=== PATIENT | female | born 1960 | race Caucasian/White ===

== ENCOUNTER 2018-01-27 13:38 | Emergency (ER) | payer MEDICAID ==
[2018-01-27] MEDS ORDERED: Furosemide 40 MG/4 ML VIAL IVPUSH ONE (14:08)
[2018-01-27] MEDS ORDERED: Sodium Chloride 0.9% 10 ML Syringe FLUSH PRN (14:08)
--- NOTE | 2018-01-27 14:30 | EDM.PDOC ---
ED HPI GENERAL MEDICAL PROBLEM - General Chief Complaint: General Stated Complaint: SWELLING Time Seen by Provider: 01/27/18 14:15 Source of Information: Reports: Patient History Limitations: Reports: No Limitations - History of Present Illness INITIAL COMMENTS - FREE TEXT/NARRATIVE: Presents with swelling to legs and hands x 2 weeks. Developed swelling to throat today, which seems to have improved. Recently underwent a cardiac workup including stress test and echocardiogram at [facility]. Denies chest pain but does endorse dyspnea on exertion. Patient states she has not been diagnosed with heart failure. - Related Data Allergies Allergy/AdvReac Type Severity Reaction Status Date / Time hydrocodone Allergy Shortness Verified 01/18/18 06:15 of Breath Home Meds: Home Meds DULoxetine HCl [Duloxetine HCl] 30 mg PO BEDTIME 12/17/17 [History] Lisinopril 20 mg PO DAILY 12/17/17 [History] Ziprasidone HCl 120 mg PO DAILY 12/17/17 [History] Furosemide [Lasix] 20 mg PO DAILY #15 tab 01/27/18 [Rx] Isosorbide Mononitrate [Imdur] 30 mg PO DAILY 01/27/18 [History] Magnesium Oxide [Magnesium] 400 mg PO DAILY #15 capsule 01/27/18 [Rx] Omeprazole 10 mg PO DAILY 01/27/18 [History] Potassium Chloride 10 meq PO DAILY #15 cap.er 01/27/18 [Rx] Past Medical History Cardiovascular History: Reports: Hypertension. Denies: CAD, Heart Failure, DC Musculoskeletal History: Reports: Other (See Below) Other Musculoskeletal History: Left hip problems Psychiatric History: Reports: Bipolar, Depression - Past Surgical History GI Surgical History: Reports: Appendectomy, Cholecystectomy Female Surgical History: Reports: Hysterectomy Social & Family History - Family History Family Medical History: Noncontributory - Tobacco Use Smoking Status *Q: Never Smoker - Caffeine Use Caffeine Use: Reports: Soda - Alcohol Use Alcohol Use History: No - Recreational Drug Use Recreational Drug Use: No ED ROS GENERAL - Review of Systems Review Of Systems: See Below Constitutional: Reports: No Symptoms HEENT: Reports: Throat Swelling Respiratory: Reports: Shortness of Breath (on exertion) Cardiovascular: Reports: Dyspnea on Exertion, Edema Endocrine: Reports: No Symptoms GI/Abdominal: Reports: No Symptoms : Reports: No Symptoms Musculoskeletal: Reports: No Symptoms Skin: Reports: No Symptoms Neurological: Reports: No Symptoms Psychiatric: Reports: No Symptoms Hematologic/Lymphatic: Reports: No Symptoms Immunologic: Reports: No Symptoms ED EXAM, GENERAL - Physical Exam Exam: See Below Exam Limited By: No Limitations General Appearance: Alert, WD/WN, No Apparent Distress Nose: Normal Inspection Throat/Mouth: Normal Inspection, Normal Lips, Normal Gums, Normal Oropharynx, Normal Voice, No Airway Compromise Head: Atraumatic, Normocephalic Neck: Normal Inspection, Supple Respiratory/Chest: No Respiratory Distress, Lungs Clear, Normal Breath Sounds Cardiovascular: Regular Rate, Rhythm, No Murmur, No Rub GI/Abdominal: Normal Bowel Sounds, Soft, Non-Tender, No Distention Extremities: Pedal Edema (to mid thighs bilaterally) Neurological: Alert, Oriented, No Motor/Sensory Deficits Psychiatric: Normal Affect, Normal Mood Skin Exam: Warm, Dry, Intact Course - Vital Signs Last Recorded V/S: Last Vital Signs Temp 36.6 C 01/27/18 13:53 Pulse 94 01/27/18 13:53 Resp 16 01/27/18 13:53 BP 140/74 01/27/18 13:53 Pulse Ox 94 L 01/27/18 13:53 - Orders/Labs/Meds Orders: Active Orders 24 hr Category Date Time Status Abdomen Pelvis w Cont [CT] Stat Exams 01/27/18 15:34 Taken CXR [Chest 2V] [CR] Stat Exams 01/27/18 15:05 Taken CULTURE BLOOD [BC] Urgent Lab 01/27/18 15:20 Received CULTURE BLOOD [BC] Urgent Lab 01/27/18 15:30 Received Sodium Chloride 0.9% [Saline Flush] Med 01/27/18 14:08 Active 10 ml FLUSH ASDIRECTED PRN Blood Culture x2 Reflex Set [OM.PC] Urgent Oth 01/27/18 15:06 Ordered Saline Lock Insert [OM.PC] Routine Oth 01/27/18 14:08 Ordered Medication Orders Sodium Chloride (Saline Flush) 10 ml FLUSH ASDIRECTED PRN PRN Reason: Keep Vein Open Last Admin: 01/27/18 14:25 Dose: 10 ml Labs: Laboratory Tests 01/27/18 01/27/18 01/27/18 Range/Units 14:20 14:20 14:20 WBC 17.4 H (4.5-12.0) X10-3/uL RBC 3.63 (3.23-5.20) x10(6)uL Hgb 11.7 (11.5-15.5) g/dL Hct 33.7 (30.0-51.3) % MCV 92.8 (80-96) fL MCH 32.2 (27.7-33.6) pg MCHC 34.7 (32.2-35.4) g/dL RDW 15.3 (11.5-15.5) % Plt Count 307 (125-369) X10(3)uL MPV 7.5 (7.4-10.4) fL Add Manual Diff Yes Neutrophils % (Manual) 72 (46-82) % Band Neutrophils % 3 (0-6) % Lymphocytes % (Manual) 12 L (13-37) % Monocytes % (Manual) 5 (4-12) % Eosinophils % (Manual) 8 H (0-5) % Sodium 135 (135-145) mmol/L Potassium 4.3 (3.5-5.3) mmol/L Chloride 99 L (100-110) mmol/L Carbon Dioxide 27 (21-32) mmol/L BUN 17 (7-18) mg/dL Creatinine 1.2 H (0.55-1.02) mg/dL Est Cr Clr Drug Dosing 44.13 mL/min Estimated GFR (MDRD) 46 L (>60) BUN/Creatinine Ratio 14.2 (9-20) Glucose 129 H (80-116) mg/dL Calcium 9.2 (8.6-10.2) mg/dL Magnesium (1.8-2.5) mg/dL Total Bilirubin 0.3 (0.1-1.3) mg/dL AST 14 (5-25) IU/L ALT 34 (12-36) U/L Alkaline Phosphatase 86 (56-112) IU/L NT-Pro-B Natriuret Pep 14 (<=125) pg/mL Total Protein 7.8 (6.0-8.0) g/dL Albumin 3.6 (3.5-5.2) g/dL Globulin 4.2 g/dL Albumin/Globulin Ratio 0.9 TSH, Ultra Sensitive 2.05 (0.36-3.74) IU/mL Urine Color (YELLOW) Urine Appearance (CLEAR) Urine pH (5.0-6.5) Ur Specific [place] (1.010-1.025) Urine Protein (NEGATIVE) mg/dL Urine Glucose (UA) (NEGATIVE) mg/dL Urine Ketones (NEGATIVE) mg/dL Urine Occult Blood (NEGATIVE) Urine Nitrite (NEGATIVE) Urine Bilirubin (NEGATIVE) Urine Urobilinogen (NEGATIVE) mg/dL Ur Leukocyte Esterase (NEGATIVE) Urine RBC (0) Urine WBC (0) Ur Squamous Epith Cells (NS,R,O) Urine Bacteria (NS) 01/27/18 01/27/18 Range/Units 14:20 15:11 WBC (4.5-12.0) X10-3/uL RBC (3.23-5.20) x10(6)uL Hgb (11.5-15.5) g/dL Hct (30.0-51.3) % MCV (80-96) fL MCH (27.7-33.6) pg MCHC (32.2-35.4) g/dL RDW (11.5-15.5) % Plt Count (125-369) X10(3)uL MPV (7.4-10.4) fL Add Manual Diff Neutrophils % (Manual) (46-82) % Band Neutrophils % (0-6) % Lymphocytes % (Manual) (13-37) % Monocytes % (Manual) (4-12) % Eosinophils % (Manual) (0-5) % Sodium (135-145) mmol/L Potassium (3.5-5.3) mmol/L Chloride (100-110) mmol/L Carbon Dioxide (21-32) mmol/L BUN (7-18) mg/dL Creatinine (0.55-1.02) mg/dL Est Cr Clr Drug Dosing mL/min Estimated GFR (MDRD) (>60) BUN/Creatinine Ratio (9-20) Glucose (80-116) mg/dL Calcium (8.6-10.2) mg/dL Magnesium 1.5 L (1.8-2.5) mg/dL Total Bilirubin (0.1-1.3) mg/dL AST (5-25) IU/L ALT (12-36) U/L Alkaline Phosphatase (56-112) IU/L NT-Pro-B Natriuret Pep (<=125) pg/mL Total Protein (6.0-8.0) g/dL Albumin (3.5-5.2) g/dL Globulin g/dL Albumin/Globulin Ratio TSH, Ultra Sensitive (0.36-3.74) IU/mL Urine Color Yellow (YELLOW) Urine Appearance Clear (CLEAR) Urine pH 5.0 (5.0-6.5) Ur Specific [place] 1.005 L (1.010-1.025) Urine Protein Negative (NEGATIVE) mg/dL Urine Glucose (UA) Normal (NEGATIVE) mg/dL Urine Ketones Negative (NEGATIVE) mg/dL Urine Occult Blood Negative (NEGATIVE) Urine Nitrite Negative (NEGATIVE) Urine Bilirubin Negative (NEGATIVE) Urine Urobilinogen Normal (NEGATIVE) mg/dL Ur Leukocyte Esterase Negative (NEGATIVE) Urine RBC Not seen (0) Urine WBC 0-5 (0) Ur Squamous Epith Cells Few H (NS,R,O) Urine Bacteria Few H (NS) Meds: Medications Generic Name Dose Route Start Last Admin Trade Name Freq PRN Reason Stop Dose Admin Sodium Chloride 10 ml 01/27/18 14:08 01/27/18 14:25 Saline Flush FLUSH 10 ml ASDIRECTED PRN Administration Keep Vein Open Discontinued Medications Generic Name Dose Route Start Last Admin Trade Name Freq PRN Reason Stop Dose Admin Furosemide 40 mg 01/27/18 14:08 01/27/18 14:25 Lasix IVPUSH 01/27/18 14:09 40 mg NOW ONE Administration Iopamidol 100 ml 01/27/18 15:46 01/27/18 15:52 [id number] (76%) IV 01/27/18 15:47 100 ml . DIRECTED ONE Administration - Radiology Interpretation Free Text/Narrative:: CXR: NAD CT ABD/PELVIS w/ IV: Bilateral low-density adrenal lesions. Mild lymph node prominence in the mid and upper abdomen. Left ovarian cystic lesion. - Re-Assessments/Exams Free Text/Narrative Re-Assessment/Exam: 01/27/18 16:33 Eosinophilia noted on 01/18/18 CBC. Patient diuresed after Lasix, feels much better. Departure - Departure Time of Disposition: 16:35 Disposition: Home, Self-Care 01 Condition: Good Clinical Impression: Eosinophilia, Anasarca, Hypomagnesemia - Discharge Information *PRESCRIPTION DRUG MONITORING PROGRAM REVIEWED*: No *COPY OF PRESCRIPTION DRUG MONITORING REPORT IN PATIENT RICHAR: Not Applicable Prescriptions: Furosemide [Lasix] 20 mg PO DAILY #15 tab Magnesium Oxide [Magnesium] 400 mg PO DAILY #15 capsule Potassium Chloride 10 meq PO DAILY #15 cap.er Instructions: Edema, [id number], Leukocytosis, Hypomagnesemia Referrals: Fabian Charles MD [Primary Care Provider] - Forms: ED Department Discharge, ED Return to Work/School Form Additional Instructions: Fill prescriptions for Lasix, Potassium and Magnesium and take as directed. Follow up with your doctor in 1-2 days. Return to the ER if symptoms worsen. - My Orders Last 24 Hours: My Active Orders 01/27/18 14:08 Sodium Chloride 0.9% [Saline Flush] 10 ml FLUSH ASDIRECTED PRN Saline Lock Insert [OM.PC] Routine 01/27/18 15:05 CXR [Chest 2V] [CR] Stat 01/27/18 15:06 Blood Culture x2 Reflex Set [OM.PC] Urgent 01/27/18 15:20 CULTURE BLOOD [BC] Urgent 01/27/18 15:30 CULTURE BLOOD [BC] Urgent 01/27/18 15:34 Abdomen Pelvis w Cont [CT] Stat - Assessment/Plan Last 24 Hours: My Active Orders 01/27/18 14:08 Sodium Chloride 0.9% [Saline Flush] 10 ml FLUSH ASDIRECTED PRN Saline Lock Insert [OM.PC] Routine 01/27/18 15:05 CXR [Chest 2V] [CR] Stat 01/27/18 15:06 Blood Culture x2 Reflex Set [OM.PC] Urgent 01/27/18 15:20 CULTURE BLOOD [BC] Urgent 01/27/18 15:30 CULTURE BLOOD [BC] Urgent 01/27/18 15:34 Abdomen Pelvis w Cont [CT] Stat
[2018-01-27] MEDS ORDERED: Iopamidol 755 Mg/ML 100 ML Bottle IV ONE (15:46)
--- NOTE | 2018-01-30 14:52 | CR ---
INDICATION: Leukocytosis. CHEST, PA AND LATERAL VIEWS: FINDINGS: This patient is of larger body habitus. There is prominent mediastinal fat. There is emphysematous change in the upper lungs. No pneumonia. No pleural effusion. No CHF. There is a mild rotoscoliosis deformity of the thoracic spine. Upper thoracic spine is curved convex right. Lower thoracic spine is curved convex left. There is some mild degenerative end plate change and spurring throughout the thoracic spine. IMPRESSION: Underlying emphysema. No pneumonia or CHF. MTDD
== END 2018-01-27 16:46 | disposition home or self-care (01) ==
LOC: FB.ED 13:38
DX: R60.1 Generalized edema (principal); D72.1 Eosinophilia; E83.42 Hypomagnesemia; I10 Essential (primary) hypertension; Z88.5 Allergy status to narcotic agent; Z79.899 Other long term (current) drug therapy
CPT/HCPCS: 36415; 71046; 74177; 80053; 81001; 83735; 83880; 84443; 85025; 87040; 96374; 99285; J1940; J7050; Q9967

== ENCOUNTER 2022-03-16 10:09 | Inpatient (IN) | payer BC ==
[2022-03-16] MEDS ORDERED: Acetaminophen 500 MG Tab PO ONE (10:26)
[2022-03-16 11:00] LABS: ESTIMATED GFR 72 mL/min (>60)
[2022-03-16 11:00] LABS: BASE EXCESS VENOUS,POC 4 mmol/L (-2 - 3+); PCO2 VENOUS,POC 57 mmHg (41-51); PH VENOUS,POC 7.35 pH Units (7.32-7.43)
[2022-03-16] MEDS ORDERED: Magnesium Sulfate/Water 2 GM in Premix Bag 1 BAG IV ONE (11:16)
[2022-03-16 12:10] LABS: CORONAVIRUS COVID-19 NAA NEGATIVE (NEGATIVE)
[2022-03-16] MEDS ORDERED: Sodium Chloride 0.9% 1,000 ML IV ONE ×2 (12:10→23:11)
[2022-03-16] MEDS ORDERED: Albuterol/Ipratropium 3.0-0.5 MG/3 ML Neb Soln NEB ONE (12:15)
[2022-03-16] MEDS ORDERED: Ondansetron 4 MG/2 ML SDV IV PRN (15:12)
[2022-03-16] MEDS ORDERED: Magnesium Hydroxide 400 MG/5 ML Susp 30 ML Cup PO PRN (15:12)
[2022-03-16] MEDS ORDERED: Acetaminophen 325 MG Tab PO PRN (15:12)
[2022-03-16] MEDS ORDERED: Albuterol 0.083% 2.5 MG/3 ML Neb Soln NEB PRN (15:12)
[2022-03-16] MEDS ORDERED: Zolpidem 5 MG Tab PO PRN (15:12)
[2022-03-16] MEDS ORDERED: amLODIPine 5 MG Tab PO SCH (15:15)
[2022-03-16] MEDS ORDERED: Aspirin 81 MG Tab.EC PO SCH (15:15)
[2022-03-16] MEDS ORDERED: Dextrose 5%-0.45% NaCl 1,000 ML IV SCH (15:15)
[2022-03-16] MEDS ORDERED: Cetirizine 10 MG Tab PO SCH (15:15)
[2022-03-16] MEDS ORDERED: methylPREDNISolone Sod Succ 125 MG in Sodium Chloride 0.9% 100 ML IV SCH (16:00)
[2022-03-16] MEDS: Albuterol/Ipratropium 3.0-0.5 MG/3 ML Neb Soln NEB SCH ×2 (16:22→22:00)
[2022-03-16] MEDS: Enoxaparin 40 MG/0.4 ML Syringe SUBCUT SCH (16:23)
[2022-03-16] MEDS: methylPREDNISolone Sodium Succinate 125 MG/2 ML SDV IVPUSH SCH (16:23)
[2022-03-16] MEDS ORDERED: Azithromycin 500 MG in Sodium Chloride 0.9% 250 ML IV SCH (16:30)
[2022-03-16] MEDS: D5 1/2 NS w/ 20 mEq/L KCl 1,000 ML IV SCH (18:24)
[2022-03-16] MEDS: Ziprasidone HCl 20 MG Cap PO SCH (20:55)
[2022-03-16] MEDS: DULoxetine 60 MG Cap PO SCH (20:55)
[2022-03-16] MEDS: Montelukast 10 MG Tab PO SCH (20:56)
[2022-03-16] MEDS: Simvastatin 10 MG Tab PO SCH (20:56)
[2022-03-16] MEDS: metFORMIN 1,000 MG Tab PO SCH (20:56)
[2022-03-16] MEDS: Pregabalin 75 MG Cap PO SCH (21:09)
[2022-03-16] MEDS: Magnesium Oxide 400 MG Tab PO SCH (22:03)
[2022-03-17] MEDS: methylPREDNISolone Sodium Succinate 125 MG/2 ML SDV IVPUSH SCH ×2 (00:08→08:25)
[2022-03-17] MEDS ORDERED: Sodium Chloride 0.9% 1,000 ML IV ONE (02:33)
[2022-03-17] MEDS ORDERED: Iopamidol 755 Mg/ML 75 ML Bottle IV ONE (03:55)
[2022-03-17] MEDS: Albuterol/Ipratropium 3.0-0.5 MG/3 ML Neb Soln NEB SCH ×4 (04:08→21:13)
[2022-03-17 04:26] LABS: BASE EXCESS VENOUS,POC -4 mmol/L (-2 - 3+); PCO2 VENOUS,POC 47 mmHg (41-51)
[2022-03-17] MEDS: D5 1/2 NS w/ 20 mEq/L KCl 1,000 ML IV SCH ×2 (04:55→05:00)
[2022-03-17 05:17] LABS: ESTIMATED GFR 72 mL/min (>60)
[2022-03-17] MEDS: Pantoprazole 40 MG Tab.CR PO SCH (06:31)
[2022-03-17] MEDS: Aspirin 81 MG Tab.EC PO SCH (08:26)
[2022-03-17] MEDS: amLODIPine 5 MG Tab PO SCH (08:26)
[2022-03-17] MEDS: DULoxetine 30 MG Cap PO SCH (08:26)
[2022-03-17] MEDS: Hydrochlorothiazide/Lisinopril 12.5-10 MG Tab PO SCH (08:26)
[2022-03-17] MEDS: Cetirizine 10 MG Tab PO SCH (08:26)
[2022-03-17] MEDS: Sodium Chloride 0.9% 10 ML Syringe FLUSH PRN ×3 (08:27→21:17)
[2022-03-17] MEDS: Pregabalin 75 MG Cap PO SCH ×2 (09:57→21:13)
[2022-03-17] MEDS: Magnesium Oxide 400 MG Tab PO SCH (10:11)
[2022-03-17] MEDS ORDERED: Sodium Chloride 0.9% 1,000 ML IV SCH (13:30)
[2022-03-17] MEDS: Piperacillin/Tazobactam 3.375 GM in Sodium Chloride 0.9% 50 ML IV SCH ×2 (13:46→20:43)
[2022-03-17] MEDS ORDERED: Iopamidol 755 MG/ML 150 ML Bottle IV ONE (14:00)
[2022-03-17] MEDS: Enoxaparin 40 MG/0.4 ML Syringe SUBCUT SCH (16:36)
[2022-03-17 17:45] LABS: BASE EXCESS VENOUS,POC -3 mmol/L (-2 - 3+); PCO2 VENOUS,POC 39 mmHg (41-51); PH VENOUS,POC 7.37 pH Units (7.32-7.43)
[2022-03-17] MEDS: DULoxetine 60 MG Cap PO SCH (21:12)
[2022-03-17] MEDS: Ziprasidone HCl 20 MG Cap PO SCH (21:12)
[2022-03-17] MEDS: Montelukast 10 MG Tab PO SCH (21:13)
[2022-03-17] MEDS: Simvastatin 10 MG Tab PO SCH (21:13)
[2022-03-18] MEDS: Piperacillin/Tazobactam 3.375 GM in Sodium Chloride 0.9% 50 ML IV SCH ×2 (02:21→09:38)
[2022-03-18] MEDS: Albuterol/Ipratropium 3.0-0.5 MG/3 ML Neb Soln NEB SCH ×4 (04:06→21:00)
[2022-03-18] MEDS: Sodium Chloride 0.9% 10 ML Syringe FLUSH PRN ×2 (04:07→09:38)
[2022-03-18] MEDS: Pantoprazole 40 MG Tab.CR PO SCH (06:31)
[2022-03-18 06:35] LABS: ESTIMATED GFR 72 mL/min (>60)
[2022-03-18] MEDS: Pregabalin 75 MG Cap PO SCH ×2 (09:39→21:06)
[2022-03-18] MEDS: DULoxetine 30 MG Cap PO SCH (09:41)
[2022-03-18] MEDS: Hydrochlorothiazide/Lisinopril 12.5-10 MG Tab PO SCH (09:44)
[2022-03-18] MEDS: amLODIPine 5 MG Tab PO SCH (09:45)
[2022-03-18] MEDS: Cetirizine 10 MG Tab PO SCH (09:55)
[2022-03-18] MEDS: Aspirin 81 MG Tab.EC PO SCH (09:55)
[2022-03-18] MEDS: Doxycycline 100 MG Tab PO SCH ×2 (11:35→20:59)
[2022-03-18] MEDS: predniSONE 20 MG Tab PO SCH ×2 (11:35→20:59)
[2022-03-18] MEDS: Enoxaparin 40 MG/0.4 ML Syringe SUBCUT SCH (16:16)
[2022-03-18] MEDS: DULoxetine 60 MG Cap PO SCH (20:58)
[2022-03-18] MEDS: Ziprasidone HCl 20 MG Cap PO SCH (20:58)
[2022-03-18] MEDS: Montelukast 10 MG Tab PO SCH (20:59)
[2022-03-18] MEDS: Simvastatin 10 MG Tab PO SCH (20:59)
[2022-03-19] MEDS: Albuterol/Ipratropium 3.0-0.5 MG/3 ML Neb Soln NEB SCH ×2 (04:45→10:09)
[2022-03-19 06:49] LABS: ESTIMATED GFR 72 mL/min (>60)
[2022-03-19] MEDS: Pantoprazole 40 MG Tab.CR PO SCH (06:53)
[2022-03-19] MEDS: DULoxetine 30 MG Cap PO SCH (08:41)
[2022-03-19] MEDS: metFORMIN 1,000 MG Tab PO SCH (08:43)
[2022-03-19] MEDS: Aspirin 81 MG Tab.EC PO SCH (08:44)
[2022-03-19] MEDS: amLODIPine 5 MG Tab PO SCH (08:45)
[2022-03-19] MEDS: Hydrochlorothiazide/Lisinopril 12.5-10 MG Tab PO SCH (08:45)
[2022-03-19] MEDS: Doxycycline 100 MG Tab PO SCH (08:46)
[2022-03-19] MEDS: predniSONE 20 MG Tab PO SCH (08:46)
[2022-03-19] MEDS: Cetirizine 10 MG Tab PO SCH (08:46)
[2022-03-19] MEDS: Pregabalin 75 MG Cap PO SCH (08:51)
== END 2022-03-19 10:40 | disposition home or self-care (01) | DRG 140 ==
LOC: FB.ED 10:09 → FB.MS 15:06 → UNDOADMOB 15:06 → OBSVTOIN 03-17 12:59
PROVIDERS: ADMIT Student in an Organized Health Care Education/Training Program; ATTEND Student in an Organized Health Care Education/Training Program
DX: J44.1 Chronic obstructive pulmonary disease with (acute) exacerbation (principal); I50.9 Heart failure, unspecified; E11.9 Type 2 diabetes mellitus without complications; E66.2 Morbid (severe) obesity with alveolar hypoventilation; I11.0 Hypertensive heart disease with heart failure; E86.0 Dehydration; R79.82 Elevated C-reactive protein (CRP); F31.81 Bipolar II disorder; G47.30 Sleep apnea, unspecified; Z20.822 Contact with and (suspected) exposure to COVID-19; E87.20 Acidosis, unspecified; Z88.5 Allergy status to narcotic agent; Z87.891 Personal history of nicotine dependence; Z91.018 Allergy to other foods; Z79.899 Other long term (current) drug therapy; Z79.82 Long term (current) use of aspirin; Z79.84 Long term (current) use of oral hypoglycemic drugs; Z90.49 Acquired absence of other specified parts of digestive tract; Z90.710 Acquired absence of both cervix and uterus; Z68.41 Body mass index [BMI] 40.0-44.9, adult
CPT/HCPCS: 0241U; 36415; 71045; 71275; 74177; 80048; 80053; 80202; 81001; 82947; 83605; 83615; 83735; 84484; 85025; 85379; 86140; 87040; 93005; 93306; 94640; 97161-GP; A9270-GY; J0456; J1650; J2543; J2930; J3370; J3475; J3480; J3490; J7030; J7050; J7512; J7620; Q9967

== ENCOUNTER 2022-04-24 18:45 | Emergency (ER) | payer BC ==
[2022-04-24 19:55] LABS: ESTIMATED GFR 72 mL/min (>60)
[2022-04-24] MEDS ORDERED: Iopamidol 755 Mg/ML 100 ML Bottle IV ONE (20:45)
== END 2022-04-24 22:35 ==
LOC: FB.ED 18:45
DX: R00.0 Tachycardia, unspecified (principal); R79.1 Abnormal coagulation profile; M79.89 Other specified soft tissue disorders; J44.9 Chronic obstructive pulmonary disease, unspecified
CPT/HCPCS: 36415; 71046; 80053; 85025; 85379; 99285

== ENCOUNTER 2022-05-08 17:16 | Inpatient (IN) | payer BC, MEDICAID ==
[2022-05-08] MEDS ORDERED: Aspirin 81 MG Tab.Chew PO ONE (17:20)
[2022-05-08 18:04] LABS: ESTIMATED GFR 46 mL/min (>60)
[2022-05-08] MEDS ORDERED: Sodium Chloride 0.9% 1,000 ML IV ONE ×3 (18:24→22:00)
[2022-05-08] MEDS ORDERED: Magnesium Sulfate/Water 4 GM in Premix Bag 1 BAG IV ONE (18:24)
[2022-05-08] MEDS: Piperacillin/Tazobactam 3.375 GM in Sodium Chloride 0.9% 50 ML IV SCH (18:36)
[2022-05-08 18:59] LABS: CORONAVIRUS COVID-19 NAA NEGATIVE (NEGATIVE)
[2022-05-08] MEDS ORDERED: Ondansetron 4 MG/2 ML SDV IVPUSH ONE (21:07)
[2022-05-08] MEDS ORDERED: fentaNYL 100 MCG/2 ML SDV IVPUSH ONE (21:08)
[2022-05-08] MEDS ORDERED: Iopamidol 755 MG/ML 150 ML Bottle IV ONE (22:01)
[2022-05-08] MEDS: Azithromycin 500 MG in Sodium Chloride 0.9% 250 ML IV SCH (23:40)
[2022-05-08] MEDS ORDERED: Morphine 4 MG/ML VIAL IVPUSH PRN (23:41)
[2022-05-08] MEDS ORDERED: Labetalol 20 MG/4 ML Syringe IVPUSH PRN (23:41)
[2022-05-08] MEDS: Acetaminophen 500 MG Tab PO PRN (23:50)
[2022-05-09] MEDS: Albuterol/Ipratropium 3.0-0.5 MG/3 ML Neb Soln NEB PRN ×3 (00:11→08:23)
[2022-05-09] MEDS ORDERED: Ondansetron 4 MG/2 ML SDV IVPUSH PRN (01:00)
[2022-05-09] MEDS: Piperacillin/Tazobactam 3.375 GM in Sodium Chloride 0.9% 50 ML IV SCH ×5 (01:07→23:37)
[2022-05-09] MEDS: Enoxaparin 40 MG/0.4 ML Syringe SUBCUT SCH ×2 (01:08→23:36)
[2022-05-09 05:51] LABS: ESTIMATED GFR 57 mL/min (>60)
[2022-05-09] MEDS ORDERED: VANCOmycin 2 GM/400 ML 2 GM in Premix Bag 1 BAG IV ONE (06:15)
[2022-05-09] MEDS ORDERED: Sodium Chloride 0.9% 1,000 ML IV ONE ×2 (06:24→08:46)
[2022-05-09] MEDS ORDERED: Albuterol/Ipratropium 3.0-0.5 MG/3 ML Neb Soln NEB PRN (08:11)
[2022-05-09] MEDS: Acetaminophen 500 MG Tab PO PRN (08:23)
[2022-05-09] MEDS ORDERED: Sodium Chloride 0.9% 500 ML IV ONE (08:46)
[2022-05-09] MEDS ORDERED: traMADol 50 MG Tab PO PRN (08:58)
[2022-05-09] MEDS ORDERED: Albuterol 8 GM Inhaler INH PRN (08:58)
[2022-05-09] MEDS ORDERED: Furosemide 40 MG/4 ML VIAL IVPUSH ONE (09:13)
[2022-05-09] MEDS ORDERED: Carboxymethylcellulose Sodium 0.5% Ophth Soln 15 ML Bottle EYEBOTH PRN (09:20)
[2022-05-09] MEDS: DULoxetine 30 MG Cap PO SCH (09:31)
[2022-05-09] MEDS: Saccharomyces Boulardii (Probiotic) 250 MG Cap PO SCH ×2 (09:31→20:58)
[2022-05-09] MEDS: Pantoprazole 40 MG Tab.CR PO SCH (09:32)
[2022-05-09] MEDS ORDERED: Ibuprofen 400 MG Tab PO PRN (09:39)
[2022-05-09] MEDS: Acetaminophen 650 MG Tab.ER PO SCH ×2 (10:01→20:58)
[2022-05-09] MEDS ORDERED: 50% Dextrose in Water 50 ML Syringe IVPUSH PRN (12:03)
[2022-05-09] MEDS ORDERED: Insulin Lispro 100 Unit/ML 3 ML KwikPen SUBCUT PRN (12:03)
[2022-05-09] MEDS ORDERED: Glucagon,Human Recombinant 1 MG Vial IM PRN (12:03)
[2022-05-09] MEDS ORDERED: Levalbuterol HCl 1.25 MG/3 ML Neb INH PRN (12:38)
[2022-05-09] MEDS: Aspirin 81 MG Tab.EC PO SCH (20:58)
[2022-05-09] MEDS: DULoxetine 60 MG Cap PO SCH (20:58)
[2022-05-09] MEDS: Montelukast 10 MG Tab PO SCH (20:59)
[2022-05-09] MEDS: Ziprasidone HCl 20 MG Cap PO SCH (20:59)
[2022-05-09] MEDS: Cetirizine 10 MG Tab PO SCH (21:00)
[2022-05-09] MEDS: hydrOXYzine HCl 25 MG Tab PO SCH (21:00)
[2022-05-09] MEDS: Sodium Chloride 0.9% 10 ML Syringe FLUSH PRN ×2 (21:51→23:37)
[2022-05-09] MEDS: Azithromycin 500 MG in Sodium Chloride 0.9% 250 ML IV SCH (21:52)
[2022-05-10] MEDS: Piperacillin/Tazobactam 3.375 GM in Sodium Chloride 0.9% 50 ML IV SCH ×3 (05:37→18:02)
[2022-05-10] MEDS: Sodium Chloride 0.9% 10 ML Syringe FLUSH PRN ×3 (05:37→22:32)
[2022-05-10 06:38] LABS: ESTIMATED GFR 83 mL/min (>60)
[2022-05-10] MEDS: DULoxetine 30 MG Cap PO SCH (08:05)
[2022-05-10] MEDS: Pantoprazole 40 MG Tab.CR PO SCH (08:05)
[2022-05-10] MEDS: Saccharomyces Boulardii (Probiotic) 250 MG Cap PO SCH ×2 (08:05→21:37)
[2022-05-10] MEDS: Acetaminophen 650 MG Tab.ER PO SCH ×2 (08:05→21:50)
[2022-05-10] MEDS ORDERED: VANCOmycin 1.25 GM/250 ML 250 ML IV SCH (09:00)
[2022-05-10] MEDS: Lisinopril 10 MG Tab PO SCH ×2 (21:35→22:22)
[2022-05-10] MEDS: DULoxetine 60 MG Cap PO SCH (21:38)
[2022-05-10] MEDS: hydrOXYzine HCl 25 MG Tab PO SCH (21:40)
[2022-05-10] MEDS: Ziprasidone HCl 20 MG Cap PO SCH (21:41)
[2022-05-10] MEDS: Aspirin 81 MG Tab.EC PO SCH (21:42)
[2022-05-10] MEDS: Montelukast 10 MG Tab PO SCH (21:50)
[2022-05-10] MEDS: Cetirizine 10 MG Tab PO SCH (21:51)
[2022-05-10] MEDS: Azithromycin 500 MG in Sodium Chloride 0.9% 250 ML IV SCH (22:32)
[2022-05-10] MEDS: Enoxaparin 40 MG/0.4 ML Syringe SUBCUT SCH (23:36)
[2022-05-11] MEDS: Piperacillin/Tazobactam 3.375 GM in Sodium Chloride 0.9% 50 ML IV SCH ×2 (00:27→06:41)
[2022-05-11] MEDS: Sodium Chloride 0.9% 10 ML Syringe FLUSH PRN ×2 (00:28→06:41)
[2022-05-11 06:35] LABS: ESTIMATED GFR 98 mL/min (>60)
[2022-05-11] MEDS: DULoxetine 30 MG Cap PO SCH (08:20)
[2022-05-11] MEDS: Saccharomyces Boulardii (Probiotic) 250 MG Cap PO SCH ×2 (08:21→20:54)
[2022-05-11] MEDS: Pantoprazole 40 MG Tab.CR PO SCH (08:21)
[2022-05-11] MEDS: Acetaminophen 650 MG Tab.ER PO SCH ×2 (08:21→20:48)
[2022-05-11] MEDS: metFORMIN 1,000 MG Tab PO SCH ×2 (08:27→17:49)
[2022-05-11] MEDS: Amoxicillin/Clavulanate K 875-125 MG Tab PO SCH ×2 (11:51→20:52)
[2022-05-11] MEDS: Lisinopril 10 MG Tab PO SCH (20:47)
[2022-05-11] MEDS: Montelukast 10 MG Tab PO SCH (20:49)
[2022-05-11] MEDS: hydrOXYzine HCl 25 MG Tab PO SCH (20:51)
[2022-05-11] MEDS: DULoxetine 60 MG Cap PO SCH (20:53)
[2022-05-11] MEDS: Aspirin 81 MG Tab.EC PO SCH (20:56)
[2022-05-11] MEDS: Ziprasidone HCl 20 MG Cap PO SCH (20:58)
[2022-05-11] MEDS: Cetirizine 10 MG Tab PO SCH (20:58)
[2022-05-11] MEDS: Enoxaparin 40 MG/0.4 ML Syringe SUBCUT SCH (23:03)
[2022-05-11] MEDS ORDERED: Ketorolac 30 MG/ML SDV IM ONE (23:34)
[2022-05-11] MEDS ORDERED: Furosemide 40 MG/4 ML VIAL IVPUSH ONE (23:50)
[2022-05-11] MEDS ORDERED: Albuterol/Ipratropium 3.0-0.5 MG/3 ML Neb Soln NEB ONE (23:50)
[2022-05-12] MEDS: Sodium Chloride 0.9% 10 ML Syringe FLUSH PRN ×2 (00:05→00:14)
[2022-05-12 06:58] LABS: ESTIMATED GFR 83 mL/min (>60)
[2022-05-12] MEDS: metFORMIN 1,000 MG Tab PO SCH (08:08)
[2022-05-12] MEDS: DULoxetine 30 MG Cap PO SCH (08:09)
[2022-05-12] MEDS: Amoxicillin/Clavulanate K 875-125 MG Tab PO SCH (08:09)
[2022-05-12] MEDS: Acetaminophen 650 MG Tab.ER PO SCH (08:09)
[2022-05-12] MEDS: Pantoprazole 40 MG Tab.CR PO SCH (08:09)
[2022-05-12] MEDS: Saccharomyces Boulardii (Probiotic) 250 MG Cap PO SCH (08:11)
== END 2022-05-12 12:27 | disposition home or self-care (01) | DRG 720 ==
LOC: FB.ED 17:16 → FB.MS 22:43
PROVIDERS: ADMIT Student in an Organized Health Care Education/Training Program; ATTEND Family Medicine
DX: A41.9 Sepsis, unspecified organism (principal); J18.9 Pneumonia, unspecified organism; J44.0 Chronic obstructive pulmonary disease with (acute) lower respiratory infection; I10 Essential (primary) hypertension; F31.81 Bipolar II disorder; Z68.41 Body mass index [BMI] 40.0-44.9, adult; E66.01 Morbid (severe) obesity due to excess calories; J96.01 Acute respiratory failure with hypoxia; R65.20 Severe sepsis without septic shock; Z20.822 Contact with and (suspected) exposure to COVID-19; N39.0 Urinary tract infection, site not specified; B96.89 Other specified bacterial agents as the cause of diseases classified elsewhere; I11.0 Hypertensive heart disease with heart failure; I50.9 Heart failure, unspecified; E78.00 Pure hypercholesterolemia, unspecified; K21.9 Gastro-esophageal reflux disease without esophagitis; F41.0 Panic disorder [episodic paroxysmal anxiety]; E87.20 Acidosis, unspecified; E83.42 Hypomagnesemia; E11.9 Type 2 diabetes mellitus without complications; Z91.018 Allergy to other foods; Z79.82 Long term (current) use of aspirin; Z79.84 Long term (current) use of oral hypoglycemic drugs; Z79.899 Other long term (current) drug therapy; I25.2 Old myocardial infarction; Z90.49 Acquired absence of other specified parts of digestive tract; Z86.16 Personal history of COVID-19; Z87.891 Personal history of nicotine dependence; Z90.710 Acquired absence of both cervix and uterus
CPT/HCPCS: 0241U; 36415; 71045; 74177; 80048; 80053; 81001; 82947; 83605; 83735; 83880; 84484; 85025; 87040; 87086; 87088; 87186; 93005; 94150; 94640; 94669; 96365; 96366; 96368; 96375; 99285-25; A9270-GY; J0456; J1650; J1885; J1940; J2270; J2405; J2543; J3010; J3370; J3475; J3490; J7030; J7050; J7612-GY; J7620; Q9967

== ENCOUNTER 2024-02-04 13:30 | Emergency (ER) | payer MEDICAID ==
[2024-02-04] MEDS: Acetaminophen/oxyCODONE 325-5 MG Tab PO STA (13:59)
== END 2024-02-04 15:15 | disposition home or self-care (01) ==
LOC: FB.ED 13:30
DX: S83.91XA Sprain of unspecified site of right knee, initial encounter (principal); M17.11 Unilateral primary osteoarthritis, right knee; E66.9 Obesity, unspecified; E11.9 Type 2 diabetes mellitus without complications; Z88.8 Allergy status to other drugs, medicaments and biological substances; Z79.82 Long term (current) use of aspirin; Z79.84 Long term (current) use of oral hypoglycemic drugs; Z79.899 Other long term (current) drug therapy; Z90.49 Acquired absence of other specified parts of digestive tract; Z90.710 Acquired absence of both cervix and uterus; Z86.16 Personal history of COVID-19; X50.1XXA Overexertion from prolonged static or awkward postures, initial encounter
CPT/HCPCS: 73560-RT; 99283; A9270-GY